=== PATIENT | male | born 1960 | race Caucasian/White ===

== ENCOUNTER 2018-06-30 09:44 | Emergency (ER) | payer SELFPAY | END 2018-06-30 10:56 | disposition home or self-care (01) | LOC: BURERS 09:44 | DX: K04.7 Periapical abscess without sinus (principal); I10 Essential (primary) hypertension; F41.9 Anxiety disorder, unspecified; F17.210 Nicotine dependence, cigarettes, uncomplicated; Z79.899 Other long term (current) drug therapy | CPT/HCPCS: 99282 ==

== ENCOUNTER 2019-02-19 16:34 | Emergency (ER) | payer MEDICARE ==
[2019-02-19] MEDS ORDERED: Cephalexin 500 MG CAP ONE (16:57)
[2019-02-19] MEDS ORDERED: Bacitracin Zinc 1 Packet ONE (16:57)
== END 2019-02-19 17:04 | disposition home or self-care (01) ==
LOC: BURERS 16:34
DX: T87.81 Dehiscence of amputation stump (principal); I10 Essential (primary) hypertension; F17.210 Nicotine dependence, cigarettes, uncomplicated; Z79.899 Other long term (current) drug therapy; Z79.891 Long term (current) use of opiate analgesic
CPT/HCPCS: 99283

== ENCOUNTER 2019-03-07 05:32 | Emergency (ER) | payer MEDICARE ==
[2019-03-07 06:35] LABS: #Basophils 0.1 thou/uL (0.0-0.2); #Eosinphils 0.4 thou/uL (0.0-0.7); #Lymphocytes 3.5 thou/uL (1.20-3.40); #Neutrophils 5.7 thou/uL (1.40-6.50); %Basophils 1.3 % (0.0-1.0); %Eosinophils 3.6 % (0.0-10.0); %Monocytes 8.9 % (0.0-10.0); %Neutrophils 53.2 % (42.0-75.0); Hemoglobin 14.4 g/dL (14.0-18.0); Mean Corpuscular HGB CONC 32.4 g/dL (32.0-36.0); Mean Corpuscular Hemoglobin 32.2 pg (27.0-31.0); Mean Corpuscular Volume 99.5 fL (78.0-98.0); Mean Platelet Volume 5.3 fL (7.4-10.4); Platelet Count 269 thou/uL (130-400); RBC Distribution Width 12.4 % (11.5-14.5); Red Blood Cell (RBC) Count 4.47 mill/uL (4.70-6.10); White Blood Cell (WBC) Count 10.7 thou/uL (4.8-10.8)
[2019-03-07 06:52] LABS: ALT (SGPT) 14 U/L (8-55); AST (SGOT) 20 U/L (5-34); Albumin 4.1 g/dL (3.5-5.0); Alkaline Phosphatase 95 U/L (40-150); Anion Gap 14 mmol/L (10-20); BUN (Urea Nitrogen) 60 mg/dL (8.4-25.7); Bilirubin, Total 0.3 mg/dL (0.2-1.2); Calc. Creatinine Clearance 0 mL/min (70-130); Calcium 9.8 mg/dL (7.8-10.44); Carbon Dioxide 22 mmol/L (22-29); Chloride 104 mmol/L (98-107); Estimated GFR-MDRD 36; Globulin 3.3 g/dL (2.4-3.5); Glucose 103 mg/dL (70-105); Potassium 5.7 mmol/L (3.5-5.1); Protein, Total 7.4 g/dL (6.0-8.3); Sodium 134 mmol/L (136-145)
[2019-03-07] MEDS ORDERED: Clindamycin 150 MG CAP ONE (07:36)
[2019-03-07] MEDS ORDERED: Amoxicillin/Potassium Clav 875 MG TAB ONE (07:36)
--- NOTE | 2019-03-07 08:06 | CT ---
CT OF THE LEFT THIGH: DATE: 03/07/2019. FINDINGS: Spiral CT of the left thigh was performed for evaluation of an ulcer, pain, and infection near the [facility]. 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 There is soft tissue streaking near the end of the stump just beyond the end of the bone. These are present in the central part of the soft tissues, however, there is no focal fluid collection at the m oment to diagnose an abscess. The end of the femur is somewhat sclerotic, but there is no area of noe ny destruction. Other imaging modalities such as nuclear bone scanning or an MRI would be more sensi tive at telling if there was current involvement of the bone. The more proximal portions of the thig h were unremarkable. The visible portions of the bony pelvis showed no acute findings. IMPRESSION: Inflammatory changes in the soft tissues just beyond the terminal end of the femur. No evidence of f ocal abscess or bony destruction. POS: [facility]
== END 2019-03-07 07:45 | disposition home or self-care (01) ==
LOC: BURERS 05:32
DX: L03.116 Cellulitis of left lower limb (principal); E87.5 Hyperkalemia; I25.2 Old myocardial infarction; F17.210 Nicotine dependence, cigarettes, uncomplicated; I10 Essential (primary) hypertension; Z79.899 Other long term (current) drug therapy
CPT/HCPCS: 36415; 80053; 85025; 85652; 87040